=== PATIENT | female | born 1975 ===

== ENCOUNTER → 2018-11-26 | Outpatient (CLI) | payer OTHER ==
[~2018-11-26] MED LIST: ? BP MED; ALBU90OI INH; ALBU90OI61; DOXY100 PO; HYDACE5 PO; HYDCHL12.5; LABE100; METR500 PO; MONT10T; MULVITMINE; RXHYDACE PO
[2018-11-29 04:10] LABS: CHLAMYDIA TRACHOMATIS, NAA Negative (Negative); NEISSERIA GONORRHOEAE, NAA Negative (Negative)
== END | disposition home or self-care (01) ==
LOC: LAB EV 14:41 → LAB SHORT 14:41
PROVIDERS: General Practice
DX: N76.0 Acute vaginitis (principal)
CPT/HCPCS: 87086; 87491; 87591

== ENCOUNTER → 2019-03-02 | Outpatient (CLI) | payer OTHER | END | disposition home or self-care (01) | LOC: LAB 13:45 → LAB SHORT 13:45 | DX: N89.8 Other specified noninflammatory disorders of vagina (principal) | CPT/HCPCS: 87070; 87205 ==

== ENCOUNTER 2019-08-26 14:46 | Emergency (ER) | payer OTHER ==
[~2019-08-26] VITALS: Ht 160 cm; Wt 68.0 kg
[2019-08-26] MEDS ORDERED: Bactrim Ds Tab1 EACH PO (15:45)
[2019-08-26] MEDS ORDERED: HYDR1TAB94 PO (16:01)
== END 2019-08-26 16:06 | disposition home or self-care (01) ==
LOC: ER 14:46
DX: L60.0 Ingrowing nail (principal); B35.1 Tinea unguium; I10 Essential (primary) hypertension; J45.909 Unspecified asthma, uncomplicated; Z88.8 Allergy status to other drugs, medicaments and biological substances; Z79.899 Other long term (current) drug therapy
CPT/HCPCS: 11765; 99283-25

== ENCOUNTER → 2020-05-22 | Outpatient (CLI) | payer OTHER ==
[~2020-05-22] MED LIST changes: +Bactrim Ds Tab1 EACH PO; +HYDR1TAB94 PO
[2020-05-24 20:07] LABS: HPV 16 Negative (Negative); HPV 18 Negative (Negative); HPV OTHER HR TYPES Negative (Negative)
== END ==
LOC: LAB SHORT 14:53 → LAB 14:53
PROVIDERS: Nurse Practitioner Family
DX: Z01.411 Encounter for gynecological examination (general) (routine) with abnormal findings (principal)
CPT/HCPCS: 87070; 87205; 87624; G0145

== ENCOUNTER → 2020-07-30 | Outpatient (CLI) | payer OTHER | END | disposition home or self-care (01) | LOC: LAB SHORT 08:29 → PLD 08:29 | DX: N84.1 Polyp of cervix uteri (principal) | CPT/HCPCS: 88305 ==

== ENCOUNTER 2020-10-17 11:24 | Day surgery (SDC) | payer OTHER ==
[~2020-10-17] VITALS: Ht 160 cm; Wt 65.8 kg
[~2020-10-17 11:24] MED LIST changes: +ALBU2.5V5 INH; +IBUP800 PO; +LISI5 PO; -MONT10T; +MONT10T PO; +ONDA4 PO; +Percocet 5-3251 EACH PO
--- NOTE | 2020-10-17 11:55 | NUR ---
Amb[facility] in [facility] warming gown applied. Surgical site prepped with 2% Chlorhexidine cloth wipe. History, Chart, Medications and Allergies reviewed before start of procedure.Lungs clear T/O to Auscultation. Patient confirms NPO status and agrees with scheduled surgery. Pre-Op teaching done. Pt verbalizes understanding. Patient reports completing Chlorhexadine shower X2 prior to admission to hospital.
--- NOTE | 2020-10-17 13:10 | NUR ---
ASSUMED CARE OF PATIENT ASSISTED UP TO BATHROOM. HAS NO NEEDS AT THIS TIME
--- NOTE | 2020-10-17 13:35 | NUR ---
REASSUMED PATIENT CARE AFTER BREAK.
--- NOTE | 2020-10-17 18:45 | NUR ---
SHIFT SUMMARY PT POD 0 GRETTA LAP HYSTER. PORT SITES C/D/I. PT PAINFUL, WILL MEDICATE PER EMAR. PLAN IS THAT PT WILL DC HOME TONIGHT BUT WILL SEE HOW PT IS DOING ONCE MEDICATED FOR PAIN.
--- NOTE | 2020-10-17 21:54 | NUR ---
PT ASSESSMENT 2114 - PT RESTING, AWOKE EASILY, REPORTING DISCOMFORT BETTER. ATTEMPT TO GET PT OOB TO AMBULATE UNSUCCESSFUL PT INCREASED TO [address] ALSTON NOTIFIED + NEW ORDERS OBTAINED. MEDICATED PER ORDERS. WILL CONTINUE TO ASSESS.
--- NOTE | 2020-10-17 22:34 | NUR ---
PT DISCHARGED AT 2230 WITH BY SIDE. PT ABLE TO AMBULATE IN ROOM + VOID. PT REPORTING PAIN DECREASED WITH 2ND PERCOCET. UPON RN LEAVING ROOM, PT TOOK 500+cc WATER RAPIDLY PO THEN SUBSEQUENTLY VOMITTED SMALL AMOUNT OF CLEARS. PT DENYING ANY FURTHER NAUSEA AND REPORTING "I FEEL A LOT BETTER." PT ENCOURGED TO TAKE SMALL AMOUNTS OF PO INTAKE TOLERATED. PT UP TO WHEELCHAIR REQUESTING TO BE DC'D. DISCHARGE INSTRUCTIONS GIVEN + QUESTIONS ANSWERED. IVs DC'D WNL. BELONGINGS WITH . PT WHEELED OUT TO CAR VIA THU MORALES. TRANSFERED INDEPENDENTLY.
== END 2020-10-17 22:30 | disposition home or self-care (01) ==
LOC: ORSCMMR 11:24 → ORD 12:30 → SURS 17:19 → ORSCMMR 22:30 → SURS 22:30
DX: N94.6 Dysmenorrhea, unspecified (principal); D25.9 Leiomyoma of uterus, unspecified; R10.2 Pelvic and perineal pain; N80.0 Endometriosis of uterus; Q50.5 Embryonic cyst of broad ligament; I10 Essential (primary) hypertension; Z79.899 Other long term (current) drug therapy
CPT/HCPCS: 58571; S2900; 36415; 86850; 86900; 86901; 88307; A9270; J0690; J1100; J2250; J2405; J2704; J3010; J7120; Q0163

== ENCOUNTER → 2020-11-07 | Outpatient (CLI) | payer OTHER ==
[2020-11-07 14:03] LABS: Appearance, Urine Hazy (Clear); Bilirubin, Urine Neg (Neg); Blood, Urine 4+ (Neg); Color, Urine Yellow (P-Yellow); Glucose Qualitative, Urine 3+ (Neg); Ketones, Urine 1+ (Neg); Leukocyte Esterase, Urine 1+ (Neg); Nitrite, Urine Neg (Neg); Protein, Urine 1+ (Neg); Specific Gravity, Urine 1.025 (1.003-1.022); Urobilinogen, Urine NORM (Normal)
[2020-11-07 14:18] LABS: Bacteria Rare /hpf; Red Blood Cells, Urine 0-2 /hpf (0-2); Squamous Epithelial Cells Few /hpf (Few)
[2020-11-08 09:14] LABS: Candida species (DNA Probe) Positive (NEGATIVE); G. vaginalis (DNA Probe) Negative (NEGATIVE); T. vaginalis (DNA Probe) Negative (NEGATIVE)
== END | disposition home or self-care (01) ==
LOC: PLD 10:30 → LAB SHORT 10:30
PROVIDERS: Obstetrics & Gynecology
DX: R30.9 Painful micturition, unspecified (principal)
CPT/HCPCS: 81001; 87086; 87480; 87510; 87660

== ENCOUNTER 2021-04-13 14:43 | Emergency (ER) | payer OTHER ==
[~2021-04-13] VITALS: Ht 160 cm; Wt 63.5 kg
== END 2021-04-13 16:51 | disposition home or self-care (01) ==
LOC: ER 14:43
DX: J20.8 Acute bronchitis due to other specified organisms (principal); J06.9 Acute upper respiratory infection, unspecified; I10 Essential (primary) hypertension; B97.89 Other viral agents as the cause of diseases classified elsewhere; Z88.8 Allergy status to other drugs, medicaments and biological substances; Z79.899 Other long term (current) drug therapy; Z20.822 Contact with and (suspected) exposure to COVID-19
CPT/HCPCS: 71046; 87081; 87430; 99285-25

== ENCOUNTER → 2023-07-19 | Outpatient (CLI) | payer OTHER | END | disposition home or self-care (01) | LOC: LAB SHORT 14:58 → LAB 14:58 | DX: J02.9 Acute pharyngitis, unspecified (principal) | CPT/HCPCS: 87081 ==